=== PATIENT | female | born 1950 | race Caucasian/White ===

== ENCOUNTER 2016-12-13 22:23 | Emergency (ER) | payer MEDICARE, OTHER ==
[~2016-12-13] VITALS: Ht 162.6 cm; Wt 111.0 kg
[~2016-12-13 22:23] MED LIST: ALBU18HF IH; BROVANA NEB; FURO40TA4 PO; GLYB5TAB3 PO; HYDR-3498 PO; IBUP400T22 PO; LYR75 PO; METF500T4 PO; MONT10TA24 PO; OMEP20CA16 PO; POTA20TA96 PO; SITA50TA2 PO; TIOT18CA IH; TRAZ50TA18 PO
[2016-12-13 22:27] VITALS: Ht 162.6 cm; Wt 111.0 kg
[2016-12-14] MEDS ORDERED: KETOROLAC 30 MG INJ IM STA (02:01)
--- NOTE | 2016-12-14 03:54 | RADRPT ---
PROCEDURE: Right wrist. CLINICAL INDICATION: Pain. TECHNIQUE: Three views including PA, lateral and oblique views of the right wrist were performed. COMPARISON: None. FINDINGS: There is no fracture, dislocation or bone destruction. The joint spaces are within normal limits. Bone mineralization is decreased. There is no radiopaque foreign body or abnormal calcification. IMPRESSION: No evidence of fracture. Osteopenia. .Jacek Cook MD, MD Date Time Electronically viewed and signed by .Jacek Cook MD, on 12/14/2016 03:54 .T/
--- NOTE | 2016-12-14 03:55 | RADRPT ---
PROCEDURE: Right hand. CLINICAL INDICATION: Pain. TECHNIQUE: Three views including PA, lateral and oblique views of the right hand were obtained. COMPARISON: None. FINDINGS: There is no fracture, dislocation or bone destruction. The joint spaces are within normal limits. Bone mineralization is decreased. There is no radiopaque foreign body or abnormal calcification. IMPRESSION: No evidence of fracture. Osteopenia. .Jacek Cook MD, MD Date Time Electronically viewed and signed by .Jacek Cook MD, on 12/14/2016 03:55 .T/
[2016-12-14] MEDS ORDERED: HYDR-906 PO (04:04)
[2016-12-14] MEDS ORDERED: IBUP200C11 PO (04:04)
--- NOTE | 2016-12-14 19:13 | ERD ---
ER Documentation Chief Complaint Date/Time DATE: 12/14/16 TIME: 18:30 Chief Complaint sp ground level fall, right hand pain HPI This is a 66 year old female who presents with right wrist and hand pain s/p fall 5 hours prior to ED arrival. Pt states that she tripped and fell forward and landed on her hands extended. Denies any loss of consciousness. Pain is aggravated upon movement and is wearing a wrist splint upon arrival. Patient also complains of slight numbness on the right proximal digits and soreness on the right shoulder and elbow. Pt took aleve 5 hours ago. History of hypertension and DM II. Denies fever, dizziness, vision disturbances, chest pain , shortness of breath or weakness. ROS All systems reviewed and are negative except as per history of present illness. Medications Home Meds Active Scripts Hydrocodone/Acetaminophen ([place] 5-325 Tablet) 1 Each Tablet, 1 TAB PO Q6H Y for PAIN, #10 TAB Prov:YOUNG FARLEY 12/14/16 Ibuprofen* (Advil*) 200 Mg Capsule, 600 MG PO Q6H Y for PAIN, #30 CAP Prov:YOUNG FARLEY 12/14/16 Hydrocodone Bit-Acetaminophen* ([place]*) 5-325 Mg Tab, 1 TAB PO Q6 Y for PAIN, # 10 TAB Prov:BERTO BENTLEY [employer] 05/03/15 Ibuprofen* (Ibuprofen*) 400 Mg Tablet, 400 MG PO Q6H Y for PAIN, #20 TAB Prov:BERTO BENTLEY [employer] 05/03/15 Reported Medications Omeprazole* (Omeprazole*) 20 Mg Capsule.dr, 20 MG PO DAILY, CAP 04/30/14 Sitagliptin* (Januvia*) 50 Mg Tablet, 50 MG PO DAILY, TAB 04/30/14 Tiotropium [place]* (Spiriva*) 18 Mcg Cap.w.dev, 1 INH IH DAILY, EA 04/30/14 Trazodone Hcl* (Trazodone Hcl*) 50 Mg Tablet, 50 MG PO HS, TAB 04/30/14 Potassium Chloride* (Potassium Chloride*) 20 Meq Tablet.er, 20 MEQ PO DAILY, TAB.SA 04/30/14 Furosemide* (Furosemide*) 40 Mg Tablet, 40 MG PO DAILY, TAB 04/30/14 Arformoterol Tartrate* (Brovana* Neb) 2 Ml Nebu, 2 ML NEB, INH 04/30/14 Montelukast Sodium* (Montelukast Sodium*) 10 Mg Tablet, 10 MG PO HS, TAB 04/30/14 Albuterol Sulfate* (Ventolin HFA*) 18 Gm Hfa.aer.ad, 2 PUFF IH Q4H Y for WHEEZING AND RESP DISTRESS, EA 04/30/14 Pregabalin* (Lyrica*) 75 Mg Capsule, 75 MG PO TID, CAP 04/30/14 Metformin* (Glucophage*) 500 Mg Tab, 500 MG PO BID, TAB 04/30/14 Glyburide* (Glyburide*) 5 Mg Tablet, 10 MG PO BID, TAB 04/30/14 Allergies Allergies: Coded Allergies: No Known Drug Allergies (Verified Allergy, Unknown, 04/29/14) PMhx/Soc History of Surgery: Yes (GALLBLADDER; TONSILS. ) Anesthesia Reaction: No Hx Neurological Disorder: No Hx Respiratory Disorders: No Hx Cardiac Disorders: No Hx Psychiatric Problems: No Hx Miscellaneous Medical Probl: Yes (DIABETES; HTN. ) Hx Alcohol Use: No Hx Substance Use: No Hx Tobacco Use: Yes Smoking Status: Current some day smoker Physical Exam Vitals Vital Signs Date Time Temp Pulse Resp B/P Pulse Ox O2 Delivery O2 Flow Rate FiO2 12/13/16 22:27 98.3 70 20 140/67 98 Physical Exam Physical Exam CONST: Well-developed, well-nourished, in no acute distress. Nontoxic in appearance. HEENT: Atraumatic. Normal conjunctiva. EOM intact. TM intact. External ear is normal. Clear oropharnyx without erythema. No uvular deviation. Moist mucous membranes. Supple neck. No meningismus. No submandibular induration. RESP: Clear to auscultation bilaterally. No wheezing. CARDIO: Regular rate and rhythm, no murmurs. ABD: Soft, non tender, non distended. Normal bowel sounds. No McBurney's point tenderness. No guarding or rigidity. No peritoneal signs. SKIN: minimal swelling on the right wrist area. No petechiae or rashes. BACK: No midline or flank tenderness. EXT: positive for snuffbox tenderness. ROM on right wrist decreased due to pain. ROM intact on metarcapal and interphalangeal joints. No cyanosis. Distal pulses equal and bilateral. NEURO: Awake and alert, appropriate for age. 4/5 strength on right upper extremity. Normal speech. Steady gait. Results 24 hrs Current Medications Medications (Trade) Dose Ordered Sig/Yamila Route PRN Reason Start Time Stop Time Status Last Admin Dose Admin Ketorolac Tromethamine (Toradol) 30 mg ONCE STAT IM 12/14/16 02:01 12/14/16 02:07 DC 12/14/16 02:17 PROCEDURE: Right hand. CLINICAL INDICATION: Pain. TECHNIQUE: Three views including PA, lateral and oblique views of the right hand were obtained. COMPARISON: None. FINDINGS: There is no fracture, dislocation or bone destruction. The joint spaces are within normal limits. Bone mineralization is decreased. There is no radiopaque foreign body or abnormal calcification. IMPRESSION: No evidence of fracture. Osteopenia. .Jacek Cook MD, Date Time Electronically viewed and signed by .Jacek Cook MD, on 12/14/2016 03:55 PROCEDURE: Right wrist. CLINICAL INDICATION: Pain. TECHNIQUE: Three views including PA, lateral and oblique views of the right wrist were performed. COMPARISON: None. FINDINGS: There is no fracture, dislocation or bone destruction. The joint spaces are within normal limits. Bone mineralization is decreased. There is no radiopaque foreign body or abnormal calcification. IMPRESSION: No evidence of fracture. Osteopenia. .Jacek Cook MD, Date Time Electronically viewed and signed by .Jacek Cook MD, on 12/14/2016 03:54 Procedures/MDM EMERGENCY DEPARTMENT COURSE/MEDICAL DECISION MAKING This is a 66 year old female who comes to the emergency room secondary to complaints of right hand and wrist pain s/p fall on extended hand. Physical examination shows snuffbox tenderness and swelling the right wrist. Decreased wrist ROM noted secondary to pain. The patient was given toradol IM in the department. On re-evaluation, the patient's symptoms improved. Wrist and hand XR were ordered to rule out fracture. Results were interpreted by the radiologist and shows no fracture. Velcro boxer splint was applied. My primary diagnosis is left wirst sprain. Secondary diagnosis is fall Differential diagnoses considered but not limited to fractures, dislocations, septic joint, compartment syndrome, neurologic injury, vascular injury, tendon laceration, septic arthritis, osteomyelitis, DVT, foreign body, muscle sprain/ strain. Pt is hemodynamically stable upon reassessment. There are no new complaints during the ED course. The patient was discharged for outpatient management with a prescription for norco and ibuprofen. The patient was instructed to followup with and orthopedist in 2 weeks for re-evaluation. Pt was also advised to see their PMD in 1-2 days and to return to the Emergency Department if there are any new or worsening symptoms. The patient understood and agreed with the diagnosis, treatment and plan. Patient is stable for discharge at this time. Departure Diagnosis: Primary Impression: Left wrist sprain Encounter type: initial encounter Qualified Code: S63.502A - Left wrist sprain, initial encounter Additional Impression: Fall due to stumbling Encounter type: initial encounter Qualified Code: W01.0XXA - Fall due to stumbling, initial encounter Condition: Stable Patient Instructions: Wrist Sprain Additional Instructions: Call your primary care doctor tomorrow for an appointment during the next 1-2 days. Return to the emergency department immediately should you have any new or worsening symptoms. Take all medications as directed. YOUNG FARLEY Dec 14, 2016 18:40
== END 2016-12-14 04:15 | disposition home or self-care (01) ==
LOC: FTE 22:23
DX: S63.502A Unspecified sprain of left wrist, initial encounter (principal); I10 Essential (primary) hypertension; E11.9 Type 2 diabetes mellitus without complications; F17.210 Nicotine dependence, cigarettes, uncomplicated; W01.0XXA Fall on same level from slipping, tripping and stumbling without subsequent striking against object, initial encounter; Y92.9 Unspecified place or not applicable; Z79.84 Long term (current) use of oral hypoglycemic drugs
CPT/HCPCS: 29125; 73110; 73130; J1885; 96372